=== PATIENT | female | born 1970 | race Caucasian/White ===

== ENCOUNTER 2017-11-20 19:32 | Emergency (ER) | payer MEDICAID, OTHER ==
[~2017-11-20] VITALS: Ht 152.4 cm; Wt 58.0 kg
[2017-11-20 19:43] VITALS: BP 132/86; PULSE 89; RESP 16; TEMP 98.7; O2SAT 98
[2017-11-20 20:36] LABS: BACTERIA, URINE MOD /hpf; BILIRUBIN, URINE NEG (NEG); BLOOD, URINE MOD (NEG); GLUCOSE,URINE NEG (NEG); KETONE, URINE NEG (NEG); MUCUS URINE FEW /lpf (OCC); NITRITE,URINE POS (NEG); SQUAMOUS EPITHELIAL CELL URINE 1 /hpf (0-5); URINE COLOR YELLOW (YELLW/STRAW); URINE LEUKOCYTE ESTERASE LARGE (NEG); WHITE BLOOD CELL CLUMPS RARE
[2017-11-20] MEDS ORDERED: PHEN0.4T PO (22:37)
[2017-11-20] MEDS ORDERED: BACT800T5 PO (22:37)
--- NOTE | 2017-11-20 22:37 | PD ---
HPI Chief Complaint: Complaint Time Seen by Provider: 22:26 Travel History International Travel<30 days: No Contact w/Intl Traveler<30days: No Traveled to known affect area: No History of Present Illness HPI 46-year-old female here for evaluation of dysuria, increased urinary frequency, suprapubic discomfort, low back discomfort. Symptoms started yesterday and worsened today. She took ibuprofen with only mild relief of symptoms. Suprapubic pain and low back pain is sharp, constant, 6 out of 10, worse with movements. She felt nauseous earlier today. She denies vaginal bleeding or discharge. She has had subjective fevers and chills. PFSH Social History Tobacco Use: No Allergies-Medications (Allergen,Severity, Reaction): Coded Allergies: Penicillins (Verified Allergy, Unknown, 11/20/17) acetaminophen (Verified Allergy, Unknown, 11/20/17) naproxen (Verified Allergy, Unknown, 11/20/17) propoxyphene (Verified Allergy, Unknown, 11/20/17) Reported Meds & Prescriptions Reported Meds & Active Scripts Active Pyridium (Phenazopyridine HCl) 100 Mg Tab 100 Mg PO Q8H PRN 5 Days Bactrim DS (Sulfamethoxazole-Trimethoprim) 800-160 Mg Tab 1 Tab PO BID 5 Days Review of Systems Except as stated in HPI: all other systems reviewed are Neg Physical Exam Narrative GENERAL: Well-developed, well-nourished, awake, alert, comfortable, no apparent distress. SKIN: Focused skin assessment warm/dry. No rash. HEAD: Atraumatic. Normocephalic. EYES: Pupils equal and round. No scleral icterus. No injection or drainage. ENT: Mucous membranes pink and moist. NECK: Trachea midline. No JVD. CARDIOVASCULAR: Regular rate and rhythm. No murmur appreciated. RESPIRATORY: No accessory muscle use. Clear to auscultation. Breath sounds equal bilaterally. GASTROINTESTINAL: Abdomen soft, nondistended. Mild suprapubic tenderness without peritoneal signs. Normal bowel sounds. No hernias. MUSCULOSKELETAL: No obvious deformities. No clubbing. No cyanosis. No edema. Mild left CVA tenderness. No right CVA tenderness. No midline vertebral step- off or tenderness. NEUROLOGICAL: Awake and alert. No obvious cranial nerve deficits. Motor grossly within normal limits. Normal speech. PSYCHIATRIC: Appropriate mood and affect; insight and judgment normal. Data Data Last Documented VS Vital Signs Date Time Temp Pulse Resp B/P (MAP) Pulse Ox O2 Delivery O2 Flow Rate FiO2 11/20/17 19:43 98.7 89 16 132/86 (101) 98 Orders Orders Urinalysis - C+S If Indicated (11/20/17 19:46) Ed Urine Pregnancytest Poc (11/20/17 19:46) Urine Culture (11/20/17 20:00) Sulfamet-Trimeth Ds 800-160 Mg (Bactrim (11/20/17 22:45) Phenazopyridine (Pyridium) (11/20/17 22:45) Labs Laboratory Tests Test 11/20/17 20:00 Urine Color YELLOW Urine Turbidity HAZY Urine pH 6.0 Urine Specific [place] 1.016 Urine Protein 30 mg/dL Urine Glucose (UA) NEG mg/dL Urine Ketones NEG mg/dL Urine Occult Blood MOD Urine Nitrite POS Urine Bilirubin NEG Urine Urobilinogen LESS THAN 2.0 MG/DL Urine Leukocyte Esterase LARGE Urine RBC 21 /hpf Urine WBC /hpf Urine WBC Clumps RARE Urine Squamous Epithelial Cells 1 /hpf Urine Bacteria MOD /hpf Urine Mucus FEW /lpf Microscopic Urinalysis Comment CULTURE INDICATED MDM Medical Decision Making Medical Screen Exam Complete: Yes Emergency Medical Condition: Yes Differential Diagnosis UTI, cystitis, pyelonephritis, acute intra-abdominal/surgical process unlikely Narrative Course Vital signs reviewed. UA is suggestive of UTI. The patient is overall very well-appearing. Clinical exam findings and history are consistent with a UTI. Plan is to start her on Bactrim and Pyridium. PMD follow-up this week. She was advised on when to return to the emergency department. She verbalizes understanding and agreement with plan. Diagnosis Primary Impression: UTI (urinary tract infection) Qualified Codes: N30.01 - Acute cystitis with hematuria Referrals: Primary Care Physician 1 week Additional Instructions: Follow-up with a primary care physician this week. Take antibiotic as prescribed. Return to the emergency department for worsening symptoms or any other concerns. Scripts Phenazopyridine (Pyridium) 100 Mg Tab 100 MG PO Q8H Y for DYSURIA for 5 Days, #15 TAB 0 Refills Prov: Rajesh Sims MD 11/20/17 Sulfamethoxazole-Trimethoprim (Bactrim DS) 800-160 Mg Tab 1 TAB PO BID for Infection for 5 Days, #10 TAB 0 Refills Prov: Rajesh Sims MD 11/20/17 Disposition: 01 DISCHARGE HOME Condition: Stable Rajesh Sims MD November 20, 2017 22:37
[2017-11-20] MEDS ORDERED: SULFAMETHOXAZOLE-TRIMETHOPRIM DS 800-160 MG TAB PO ONE (22:45)
[2017-11-20] MEDS ORDERED: PHENAZOPYRIDINE HCL 200 MG TAB PO ONE (22:45)
== END 2017-11-20 23:27 | disposition home or self-care (01) ==
LOC: NEPD 19:32
DX: N39.0 Urinary tract infection, site not specified (principal); B96.20 Unspecified Escherichia coli [E. coli] as the cause of diseases classified elsewhere; R11.0 Nausea; Z88.0 Allergy status to penicillin; Z88.6 Allergy status to analgesic agent; Z88.8 Allergy status to other drugs, medicaments and biological substances
CPT/HCPCS: 81001; 84703; 87077; 87086; 87186; 99283